=== PATIENT | male | born 1970 | race African-American/Black ===

== ENCOUNTER 2016-05-09 19:17 | Observation (INO) | payer OTHER ==
[~2016-05-09] VITALS: Ht 175.3 cm; Wt 115.0 kg
[~2016-05-09 19:17] MED LIST: AMLO5TAB22 PO; LISI-363 PO
[2016-05-09 19:20] VITALS: BP 232/129; PULSE 114; RESP 18; TEMP 98.4; O2SAT 96
[2016-05-09 19:27] VITALS: BP 199/110; PULSE 97; RESP 18; O2SAT 99
--- NOTE | 2016-05-09 19:54 | PD ---
HPI Chief Complaint: Chest Pain Time Seen by Provider: 19:35 Travel History International Travel<30 days: No Contact w/Intl Traveler<30days: No Traveled to known affect area: No History of Present Illness HPI 45yo M with PMH of HTN noncompliant with medication, prediabetes, obesity, former cig smoker presents to the ED with c/o chest pain that is worst today. States he has intermittent left sided chest pain for months but today felt worst so decided to come. Describes it as squeezing and radiated to left upper arm. Mild SOB at the time. Pt is currently chest pain free and denies any fever, cough, sob, n/v, abdominal pain, focal weakness or numbness. Pt states his insurance went up so he has not taken hypertensive meds for over 1 year and has not seen PMD. Pt last had cardiac stress test when he was here for chest pain on 03/01/15. PFSH Past Medical History Heart Rhythm Problems: Yes (JUST RECENTLY STARTED) Cardiac Catheterization: No Cardiovascular Problems: Yes (HTN) High Cholesterol: No Congestive Heart Failure: No Diabetes: No Diminished Hearing: No Hypertension: Yes (DOES NOT MEDICATION) Triglycerides - High: Yes ?: Not Past Surgical History Coronary Artery Bypass Graft: No Family History Family Myocardial Infarction: Yes (FATHER) Social History Alcohol Use: Yes (4PK OF BEER) Tobacco Use: No (QUIT 10YRS AGO) Substance Use: No (DENIES) Allergies-Medications (Allergen,Severity, Reaction): Coded Allergies: Contrast Media (Verified Allergy, Unknown, 05/09/16) Reported Meds & Prescriptions Reported Meds & Active Scripts Active Review of Systems Except as stated in HPI: all other systems reviewed are Neg Physical Exam Narrative GENERAL: 45yo M not in distress. SKIN: Warm and dry. HEAD: Atraumatic. Normocephalic. EYES: Pupils equal and round. No scleral icterus. No injection or drainage. ENT: No nasal bleeding or discharge. Mucous membranes pink and moist. NECK: Trachea midline. No JVD. CARDIOVASCULAR: Regular rate and rhythm. No murmur appreciated. RESPIRATORY: No accessory muscle use. Clear to auscultation. Breath sounds equal bilaterally. GASTROINTESTINAL: Abdomen soft, non-tender, nondistended. No rebound tenderness or guarding. MUSCULOSKELETAL: No obvious deformities. No clubbing. No cyanosis. No edema. NEUROLOGICAL: Awake and alert. No obvious cranial nerve deficits. Motor grossly within normal limits. Normal speech. PSYCHIATRIC: Appropriate mood and affect; insight and judgment normal. Data Data Last Documented VS Vital Signs Date Time Temp Pulse Resp B/P Pulse Ox O2 Delivery O2 Flow Rate FiO2 05/09/16 21:23 89 18 176/104 99 Room Air 05/09/16 19:56 2.00 05/09/16 19:20 98.4 Orders Basic Metabolic Panel (Bmp) (05/09/16 19:50) Ckmb (Isoenzyme) Profile (05/09/16 19:50) Complete Blood Count With Diff (05/09/16 19:50) Magnesium (Mg) (05/09/16 19:50) Prothrombin Time / Inr (Pt) (05/09/16 19:50) Act Partial Throm Time (Ptt) (05/09/16 19:50) Troponin I (05/09/16 19:50) Chest, Single Ap (05/09/16 19:50) Ecg Monitoring (05/09/16 19:50) Bilateral Bp Monitoring (05/09/16 19:50) Iv Access Insert/Monitor (05/09/16 19:50) Oximetry (05/09/16 19:50) Oxygen Administration (05/09/16 19:50) Sodium Chloride 0.9% Flush (Ns Flush) (05/09/16 20:00) Hydralazine Inj (Apresoline Inj) (05/09/16 20:00) CKMB (05/09/16 19:45) CKMB% (05/09/16 19:45) Sodium Chlor 0.9% 1000 Ml Inj (Ns 1000 M (05/09/16 21:45) Insulin Human Regular Inj (Novolin R Inj (05/09/16 21:45) Electrocardiogram (05/09/16 19:32) Admit Order (Ed Use Only) (05/09/16 22:00) Clonidine (Catapres) (05/09/16 22:15) Activity Bed Rest With Brp (05/09/16 22:01) Vital Signs (Adult) Q4H (05/09/16 22:01) Cardiac Rhythm .As Directed (05/09/16 22:01) ^ Notify Dr: Other .PRN (05/09/16 22:01) ^ Notify Parameters (05/09/16 22:01) Resp Oxygen Nasal Cannula (05/09/16 ) Ckmb (Isoenzyme) Profile (05/09/16 22:) Ckmb (Isoenzyme) Profile (05/10/16 01:01) Troponin I (05/09/16 22:) Troponin I (05/10/16 01:01) Electrocardiogram (05/09/16 22:) Electrocardiogram (05/10/16 01:01) ^ Obtain (05/09/16 22:) [employer] / Telemetry RANJANA.Q8H (05/09/16 22:01) CKMB (05/09/16 23:30) CKMB% (05/09/16 23:30) CKMB (05/10/16 02:30) CKMB% (05/10/16 02:30) Labs Laboratory Tests Test 05/09/16 19:45 White Blood Count 6.7 TH/MM3 Red Blood Count 4.59 MIL/MM3 Hemoglobin 14.6 GM/DL Hematocrit 41.0 % Mean Corpuscular Volume 89.5 FL Mean Corpuscular Hemoglobin 31.9 PG Mean Corpuscular Hemoglobin 35.7 % Concent Red Cell Distribution Width 14.4 % Platelet Count 261 TH/MM3 Mean Platelet Volume 8.6 FL Neutrophils (%) (Auto) 48.8 % Lymphocytes (%) (Auto) 41.9 % Monocytes (%) (Auto) 6.7 % Eosinophils (%) (Auto) 1.7 % Basophils (%) (Auto) 0.9 % Neutrophils # (Auto) 3.3 TH/MM3 Lymphocytes # (Auto) 2.8 TH/MM3 Monocytes # (Auto) 0.4 TH/MM3 Eosinophils # (Auto) 0.1 TH/MM3 Basophils # (Auto) 0.1 TH/MM3 CBC Comment DIFF FINAL Differential Comment Prothrombin Time 10.1 SEC Prothromb Time International 0.9 RATIO Ratio Activated Partial 24.9 SEC Thromboplast Time Sodium Level 132 MEQ/L Potassium Level 4.5 MEQ/L Chloride Level 94 MEQ/L Carbon Dioxide Level 25.7 MEQ/L Anion Gap 12 MEQ/L Blood Urea Nitrogen 13 MG/DL Creatinine 1.16 MG/DL Estimat Glomerular Filtration 83 ML/MIN Rate Random Glucose 303 MG/DL Calcium Level 9.0 MG/DL Magnesium Level 2.1 MG/DL Total Creatine Kinase 189 U/L Creatine Kinase MB 1.6 NG/ML Troponin I LESS THAN 0.02 NG/ML MDM Medical Decision Making Medical Screen Exam Complete: Yes Emergency Medical Condition: Yes Interpretation(s) EKG: NSR 95bpm. LVH. No ST segment elevation or depression. TWI III. Differential Diagnosis Atypical chest pain vs. ACS vs. pneumonia vs. HTN emergency Narrative Course 45yo M with chest pain that is worst today. Pt has atypical chest pain but does have significant cardiac risk factors and do not have a PMD. Pt is obese with uncontrolled HTN, prediabetes and cig smoker. Labs reviewed, no leukocytosis Glucose is elevated at 303. No increased anion gap. CO2 25.7. Pt given NS IVF and 5 units of regular insulin. BP was initially 232/129 which improved to 176/104 after hydralazine 10mg IV. Pt's blood pressure is again increasing so clonidine 0.1mg PO given. Pt to be admitted to chest pain center for serial EKG and cardiac enzymes. Pt took aspirin at home and currently has no chest pain. Diagnosis Primary Impression: CHEST PAIN, UNSPECIFIED Admitting Information Admitting Physician Requests: Observation Scripts Lovastatin 40 Mg Tab40 Mg PO DAILY #30 TAB Ref 0 Prov:Tomas Barraza 05/10/16 Lisinopril 20 Mg Tab20 Mg PO DAILY #30 TAB Ref 0 Prov:Tomas Barraza 05/10/16 Amlodipine 10 Mg Tab10 Mg PO DAILY #30 TAB Ref 0 Prov:Tomas Barraza 05/10/16 Metformin 500 Mg Hln384 Mg PO BIDPC #60 TAB Ref 0 With meals Prov:Tomas Barraza 05/10/16 Ngozi Villafana DO May 09, 2016 19:54
[2016-05-09 19:56] VITALS: RESP 24; O2SAT 98
[2016-05-09] MEDS ORDERED: SODIUM CHLORIDE 0.9% FLUSH 10 ML FLUSH IVF PRN (20:00)
[2016-05-09] MEDS ORDERED: hydrALAZINE HCL 20 MG/ML VIAL IV PUSH ONE (20:00)
[2016-05-09 20:08] LABS: AUTOMATED NEUTROPHIL # 3.3 TH/MM3 (1.8-7.7); BASOPHIL # 0.1 TH/MM3 (0-0.2); BASOPHIL % 0.9 % (0.0-2.0); EOSINOPHIL # 0.1 TH/MM3 (0-0.4); EOSINOPHIL % 1.7 % (0.0-4.0); HEMO FLAGS DIFF FINAL; LYMPH % 41.9 % (9.0-44.0); LYMPHOCYTE # 2.8 TH/MM3 (1.0-4.8); MEAN CELL VOLUME 89.5 FL (80.0-100.0); MEAN CORPUSCULAR HEMOGLOBIN 31.9 PG (27.0-34.0); MEAN CORPUSCULAR HGB CONC 35.7 % (32.0-36.0); MONO % 6.7 % (0.0-8.0); NEUT % 48.8 % (16.0-70.0); PLATELET COUNT 261 TH/MM3 (150-450); RED BLOOD COUNT 4.59 MIL/MM3 (4.50-5.90); RED CELL DISTRIBUTION WIDTH 14.4 % (11.6-17.2); WHITE BLOOD COUNT 6.7 TH/MM3 (4.0-11.0)
[2016-05-09 20:19] LABS: APTT (PATIENT) 24.9 SEC (24.3-30.1); INTERNATIONAL NORMALIZED RATIO 0.9 RATIO; PROTHROMBIN TIME - PATIENT 10.1 SEC (9.8-11.6)
--- NOTE | 2016-05-09 20:32 | RADRPT ---
EXAM DATE/TIME: 05/09/2016 19:58 [facility] COMPARISON: CHEST SINGLE AP, February 28, 2015, 21:07. INDICATIONS : Chest pain. MEDICAL HISTORY : None. SURGICAL HISTORY : None. ENCOUNTER: Initial ACUITY: 1 day PAIN SCORE: 5/10 LOCATION: Bilateral chest FINDINGS: The lungs are clear without infiltrate, nodule, or mass. There is no appreciable pleural effusion fo r technique. Heart and mediastinum are unremarkable. CONCLUSION: No acute cardiopulmonary disease. Xiomara Shore MD on May 09, 2016 at 20:30 Board Certified Radiologist. This report was verified electronically.
[2016-05-09 20:56] LABS: ANION GAP 12 MEQ/L (5-15); BICARBONATE 25.7 MEQ/L (21.0-32.0); BLOOD UREA NITROGEN 13 MG/DL (7-18); CHLORIDE 94 MEQ/L (98-107); CREATINE KINASE 189 U/L (39-308); GLOMERULAR FILTRATION RATE 83 ML/MIN (>89); MAGNESIUM 2.1 MG/DL (1.5-2.5); SODIUM (NA) 132 MEQ/L (136-145)
[2016-05-09 20:58] LABS: POTASSIUM 4.5 MEQ/L (3.5-5.1)
[2016-05-09 21:10] LABS: CKMB 1.6 NG/ML (0.5-3.6)
[2016-05-09 21:23] VITALS: BP 176/104; PULSE 89; RESP 18; O2SAT 99
[2016-05-09] MEDS ORDERED: SODIUM CHLOR 0.9% 1000 ML INJ 1,000 ML IV ONE (21:45)
[2016-05-09] MEDS ORDERED: INSULIN HUMAN REGULAR 1,000 UNITS/10 ML VIAL SQ ONE (21:45)
[2016-05-09] MEDS ORDERED: cloNIDine HCL 0.1 MG TAB PO ONE (22:15)
[2016-05-09 23:33] VITALS: BP 191/100
[2016-05-10] VITALS (7 sets, daily range): BP systolic 140–195; BP diastolic 82–105; PULSE 72–88; RESP 18; TEMP 96.6–98.2; O2SAT 97–99
[2016-05-10 00:15] LABS: CREATINE KINASE 143 U/L (39-308)
[2016-05-10 00:27] LABS: CKMB 1.2 NG/ML (0.5-3.6)
[2016-05-10] MEDS ORDERED: cloNIDine HCL 0.1 MG TAB PO ONE (00:45)
[2016-05-10 03:02] LABS: CREATINE KINASE 147 U/L (39-308)
[2016-05-10 03:14] LABS: CKMB 1.3 NG/ML (0.5-3.6)
[2016-05-10] MEDS ORDERED: LISINOPRIL 10 MG TAB PO ONE (03:45)
[2016-05-10] MEDS ORDERED: amLODIPine BESYLATE 5 MG TAB PO ONE (03:45)
--- NOTE | 2016-05-10 09:02 | HHI.HP ---
HPI Primary Care Physician No Primary Care Physician Chief Complaint Chest pain and hypertension History of Present Illness This is a 45-year-old male that presents to the ED via private vehicle complaining of left-sided chest discomfort that has been intermittent for 2 and half months. Nothing in particular brings on the discomfort. He has on average 2-3 episodes a week. He also is concerned that his blood pressure may be high. He has not had his low pressure medicine, hyperlipidemia medication, or diabetic medications for approximately one year. He states he has no insurance or Dr. follow-up with. He states works in [employer] and does not get the discomforts in his chest when he is working. No associated shortness breath nausea or diaphoresis. Patient had a nonischemic Marcial protocol ETT February 2015. (Tomas Barraza) Review of Systems General: Patient denies fevers, chills recent, and recent travel HEENT: Patient denies headache, sore throat, difficulty swallowing. Cardiovascular: Has the chest discomfort as mentioned above. Denies sensation of heart beating rapidly or irregularly. No syncope. Denies diaphoresis. Respiratory: Denies shortness of breath or inspirational chest discomfort. Denies coughing wheezing or hemoptysis. GI: Patient denies nausea, vomiting, diarrhea, abdominal pain, bloody stools. Musculoskeletal: Patient denies joint pain or edema. Denies calf pain or edema. Neurovascular: Patient denies numbness, tingling, weakness in extremities. Denies headache. Endocrine: Denies polyuria and polydipsia. Hematologic: Denies easy bruising. Skin: Denies rash or itching. (Tomas Barraza) Past Family Social History Allergies: Coded Allergies: Contrast Media (Verified Allergy, Unknown, 05/09/16) Past Medical History Hypertension, hyperlipidemia, diabetes, and medication noncompliance. Denies known CAD. Past Surgical History Noncontributory. Reported Medications Reported Meds & Active Scripts Active Active Ordered Medications Current Medications Medications (Trade) Dose Ordered Sig/Shahnaz Route Start Time Stop Time Status Last Admin (NS Flush) 2 ml UNSCH PRN IVF 05/09/16 20:00 Family History His father at age 75 of myocardial infarction. Social History Patient quit smoking in 2005 prior that he smoked about a pack a day for 20 years. He has on average 4 beers and a couple shots of liquor daily however he states over last weekend he drank a case of beer and 2 bottles of liquor. Denies illicit drugs. (Tomas Barraza) Physical Exam Vital Signs Vital Signs Date Time Temp Pulse Resp B/P Pulse Ox O2 Delivery O2 Flow Rate FiO2 05/10/16 08:24 96.6 77 18 195/105 98 05/10/16 04:12 97.5 80 18 184/99 98 05/10/16 03:00 180/90 05/10/16 01:27 158/82 05/10/16 00:24 88 18 171/95 99 Room Air 05/09/16 23:33 191/100 05/09/16 21:23 89 18 176/104 99 Room Air 05/09/16 19:56 98 Nasal Cannula 2 05/09/16 19:56 24 98 Nasal Cannula 2 05/09/16 19:29 97 05/09/16 19:27 97 18 199/110 99 05/09/16 19:20 98.4 114 18 232/129 96 Room Air Physical Exam GENERAL: This is a well-nourished, well-developed patient, in no apparent distress. Patient speaks in clear complete sentences. Patient is pleasant. HEENT: Head is atraumatic and normocephalic. Neck is supple without lymphadenopathy and trachea is midline. No JVD or carotid bruits. CARDIOVASCULAR: Regular rate and rhythm without murmurs, gallops, or rubs. RESPIRATORY: Clear to auscultation. Breath sounds equal bilaterally. No wheezes , rales, or rhonchi. Chest wall is nontender. No use of accessory muscles. GASTROINTESTINAL: Abdomen is nontender, nondistended. Abdomen soft. No obvious pulsatile mass or bruit. No CVA tenderness. Strong femoral pulses bilaterally. Normal bowel sounds in all quadrants. MUSCULOSKELETAL: Patient is moving upper and lower extremities freely. No calf tenderness or edema, no Homans sign. Strong pulses in upper and lower extremities. NEUROLOGICAL: Patient is alert and oriented. Cranial nerves 2-12 are grossly intact. No focal deficits and speech is clear. SKIN: No rash and turgor is normal. Laboratory Laboratory Tests Test 05/09/16 05/09/16 05/10/16 19:45 23:30 02:30 White Blood Count 6.7 Red Blood Count 4.59 Hemoglobin 14.6 Hematocrit 41.0 Mean Corpuscular Volume 89.5 Mean Corpuscular Hemoglobin 31.9 Mean Corpuscular Hemoglobin 35.7 Concent Red Cell Distribution Width 14.4 Platelet Count 261 Mean Platelet Volume 8.6 Neutrophils (%) (Auto) 48.8 Lymphocytes (%) (Auto) 41.9 Monocytes (%) (Auto) 6.7 Eosinophils (%) (Auto) 1.7 Basophils (%) (Auto) 0.9 Neutrophils # (Auto) 3.3 Lymphocytes # (Auto) 2.8 Monocytes # (Auto) 0.4 Eosinophils # (Auto) 0.1 Basophils # (Auto) 0.1 CBC Comment DIFF FINAL Differential Comment Prothrombin Time 10.1 Prothromb Time International 0.9 Ratio Activated Partial 24.9 Thromboplast Time Sodium Level 132 Potassium Level 4.5 Chloride Level 94 Carbon Dioxide Level 25.7 Anion Gap 12 Blood Urea Nitrogen 13 Creatinine 1.16 Estimat Glomerular Filtration 83 Rate Random Glucose 303 Calcium Level 9.0 Magnesium Level 2.1 Total Creatine Kinase 189 143 147 Creatine Kinase MB 1.6 1.2 1.3 Troponin I LESS THAN 0.02 LESS THAN 0.02 LESS THAN 0.02 (Tomas Barraza) Result Diagram: 05/09/165 05/09/161944 Imaging Last Impressions Chest X-Ray 05/09/16 1950 Signed Impressions: Service Date/Time: Monday, May 09, 2016 19:58 - CONCLUSION: No acute cardiopulmonary disease. Xiomara Shore MD Course EKGs have sinus rhythm without significant ST segment depressions or elevations. (Tomas Barraza) Assessment and Plan Assessment and Plan * Chest pain: Patient had serial cardiac enzymes and EKGs for ruling out purposes. He has been seen by Dr. Jaison Griffin of cardiology in the chest pain center and will undergo a Marcial protocol ETT. He'll be discharged home if his stress test were to be nonischemic. We will get the patient a blue card to follow-up with at the [facility]. * Hypertension: Patient has been noncompliant. We will start amlodipine. Have Catapres when necessary. * Diabetes: Sliding coverage abuse. We'll restart metformin. * Hyperlipidemia: We'll start lovastatin. Patient is stable at this time. He is agreeable to this plan. (Tomas Barraza) Assessment and Plan Agree with above. will add lisinopril to regimen pending response to amlodipine. await ETT results (Jaison Griffin MD) Tomas Barraza May 10, 2016 09:02 Jaison Griffin MD May 10, 2016 09:09
--- NOTE | 2016-05-10 09:21 | EKG ---
Date Performed: 05/10/2016 Time Performed: 02:50:09 PTAGE: 45 years EKG: Sinus rhythm NORMAL ECG PREVIOUS TRACING : 05/09/2016 22.36 DOCTOR: Richmond Salas Interpretating Date/Time 05/10/2016 09:19:12
[2016-05-10] MEDS ORDERED: DEXTROSE 50% IN WATER 50 ML VIAL(D50) IV PRN (09:30)
[2016-05-10] MEDS ORDERED: cloNIDine HCL 0.2 MG TAB PO ONE (09:30)
[2016-05-10] MEDS ORDERED: GLUCAGON 1 MG/ML VIAL IM/SQ PRN (09:30)
--- NOTE | 2016-05-10 09:42 | EKG ---
Date Performed: 05/09/2016 Time Performed: 22:36:12 PTAGE: 45 years EKG: Sinus rhythm NORMAL ECG PREVIOUS TRACING : 05/09/2016 19.32 DOCTOR: Richmond Salas Interpretating Date/Time 05/10/2016 09:40:30
--- NOTE | 2016-05-10 10:00 | EKG ---
Date Performed: 05/09/2016 Time Performed: 19:32:19 PTAGE: 45 years EKG: Sinus rhythm MINIMAL VOLTAGE CRITERIA FOR LVH, CONSIDER NORMAL VARIANT BORDERLINE ECG PREVIOUS TRACING : 03/01/2015 03.26 DOCTOR: Richmond Salas Interpretating Date/Time 05/10/2016 09:58:48
[2016-05-10] MEDS ORDERED: LISINOPRIL 20 MG TAB PO SCH (10:15)
[2016-05-10] MEDS ORDERED: INSULIN ASPART SUPPLEMENTAL SCALE SQ SCH (11:00)
[2016-05-10] MEDS ORDERED: METF500T PO (12:08)
[2016-05-10] MEDS ORDERED: LISI-515 PO (12:08)
[2016-05-10] MEDS ORDERED: AMLO10TA2 PO (12:08)
[2016-05-10] MEDS ORDERED: LOVA40TA PO (12:08)
--- NOTE | 2016-05-10 12:10 | HHI.DCPOC ---
Discharge Care Plan Diagnosis: (1) Chest pain (2) Hypertension (3) DM (diabetes mellitus) (4) Hyperlipidemia Goals to Promote Your Health NEED TO HAVE LIVER FUNCTION BLOOD TESTS CHECKED IN TWO WEEKS NOW THAT YOU ARE TAKING CHOLESTEROL MEDICATIONS. * To prevent worsening of your condition and complications * To maintain your health at the optimal level Directions to Meet Your Goals Take your medications as prescribed Follow your dietary instruction Follow activity as directed Keep your appointments as scheduled Take your immunizations and boosters as scheduled If your symptoms worsen call your PCP, if no PCP go to Urgent Care Center or Emergency Room Smoking is Dangerous to Your Health. Avoid second hand smoke Call the 24-hour hour crisis hotline for domestic abuse at Tomas Barraza May 10, 2016 12:10
--- NOTE | 2016-05-11 14:14 | TR ---
Date Performed: 05/10/2016 Time Performed: 11:35:26 DOCTOR: Christopher Iyer DRUG LIST: CLINICAL HISTORY: CHEST PAIN REASON FOR TEST: REASON FOR ENDING: OBSERVATION: CONCLUSION: SKIP PROTOCOL. NO CP. TEST STOPPED AFTER EXCEEDING GOAL HR SECONDARY TO SOB AND LEG FATIGUE.Maximum BQ=306 % Max HR Achieved=89.0% Maximum AQ=104/92 Total Exercise Time=8:00 COMMENTS: Conclusion: Normal treadmill exercise. No evidence of ischemia.
[2016-05-30] MEDS ORDERED: METF500T PO (15:52)
[2016-05-30] MEDS ORDERED: LISI-515 PO (15:52)
[2016-05-30] MEDS ORDERED: AMLO10TA2 PO (15:52)
== END 2016-05-10 14:26 | disposition home or self-care (01) ==
LOC: NEPA 19:17 → NEDA 22:02 → NEPFCDU 05-10 04:01
PROVIDERS: ADMIT Internal Medicine Interventional Cardiology; ATTEND Internal Medicine Interventional Cardiology
DX: R07.9 Chest pain, unspecified (principal); I10 Essential (primary) hypertension; E11.9 Type 2 diabetes mellitus without complications; E78.5 Hyperlipidemia, unspecified; R06.02 Shortness of breath; Z82.49 Family history of ischemic heart disease and other diseases of the circulatory system; Z87.891 Personal history of nicotine dependence
CPT/HCPCS: 71010; 80048; 82550; 82552; 83735; 84484; 85025; 85610; 85730; 93005; 93017; 96374; 96375; 99285; G0378; J0360; J1815; J7030